=== PATIENT | male | born 1955 | race Caucasian/White ===

== ENCOUNTER 2020-03-04 23:17 | Observation (INO) ==
[2020-03-04] MEDS ORDERED: MULTI-VITAMIN INFUSION 10 ML, THIAMINE HCL 100 MG, FOLIC ACID 1 MG in SODIUM CHLORIDE 0... IV ONE (23:35)
--- NOTE | 2020-03-04 23:41 | Emergency Department Note ---
Impression & Plan Syncope, Contusion of face, Laceration of lip, Fracture of tooth, Closed head injury, Amnesia ED Provider Note Name: LINDA ROMAN Age: 64 Sex: M Arrives Via: Walk-In Informant: Patient, (Rhiannon, via ) ED Provider: Jayesh Holland MD Chief Complaint: Syncope Impression: Syncope Contusion of face Laceration of lip Fracture of tooth closed head injury amnesia Medical Decision Makin yr old male arrives mildly hypotensive and a bit confused about events after syncope at home followed by prolonged AMS and confusion. Exam with some amnesia to event and some issues recalling even discussion with me, however no neuro deficits on exam, and denies pain nor symptoms. Does have contusion to face with small lacerations not requiring closure. There is a macerated upper lip laceration which is not amenable to closure. He fractured his left frontal upper tooth and piece does not seem to be imbedded in lip itself. Admits daily ETOH and given mild hypotensive he has give banana bag 1 L with improvement BP. He thinks he may have had BM prior to passing out but can't remember. He has soft abdomen, clear lungs, and no other acute findings. CT face/head are both reported as negative per stat rad. CXR OK. Labs looking OK with normal trop at this time. He has no respiratory complaints nor risks for PE/DVT thus will hold on any dimer/imaging. Hospitalist consulted for further evaluation. I will note his amnesia is improving though still no memory of event itself. Etoh is 55 and thus initial confusion on arrival likely head injury rather than alcohol/drug related. Triage/Nursing Notes reviewed by Me Additional history obtained from Differentials:Vasovagal event, dehydration, infection, hypoglycemia, electrolyte abnormalities, cardiac sources, intracerebral event, pulmonary embolism, seizure, toxicologic, neurologic, as well as other pathologies. Vital Signs: reviewed and remarkable for mild hypotension on arrival Interventions: Saline lock, Banana Bag 1 L IV Labs:Reviewed and remarkable for no significant abnormalities Imaging:[facility] Radiologist interpretation reviewed by me: CT Head Face: No acute findings X ray results are stated below per my interpretation: Chest: 1 view: No infiltrate, no effusion, normal cardiac border. EKG:Per My Interpretation: Indication Syncope: NSR 84 bpm, qtc 427, RBBB. No Ectopy. No Ischemia. No previous for comparison Cardiac/Tele Monitoring: Cardiac Monitoring: An Order was placed for continuous cardiac monitoring. The monitor shows a rate of 80 with a normal sinus rhythm. Consults:Dr Sammi Eaton Hospitalist Plan: Disposition:Hospitalization. Condition: Good Prescriptions:none PDMP: n/a History of Present Illness:64 yr old male who reports no medical problems arrives for evaluation following syncopal event. Patient notes he was having normal evening, likely drank several beers and then he remembers his waking him from floor. He apparently got up and was walking in to the bedroom and heard loud crash. Found patient laying face down and unresponsive on the ground. Several facial lacerations/contusions. Patient gradually came to and brought him to ED for further evaluation. Patient notes his face is sore but denies headache, neck pain nor other pains. States he was feeling fine all day. He admits nightly drinking and only ever goes more than a day without alcohol during Lent. Believes he goes through at least one to two cases of beer a day. Furthermore he admits he was smoking marijuana this evening. Denies recent fevers, chills, nausea, vomiting, cp, sob, back pain, abdominal pain, leg swelling, calf pain, rashes nor other symptoms. He denies recent travel nor PE/DVT risks. Patient believes tetanus vaccination up to date within last few years. ROS: See above HPI for pertinent positives & negatives. A total of 10 systems reviewed and were otherwise negative. Past Medical History:None Past Surgical History:None Family History:Mother and father of cancer Social History:Retired from [employer], Daily ETOH, occasional marijuana, no other drugs, no tobacco Home Medications:None Allergies:None Vitals:Blood Pressure: 98/61, Pulse 84, RR 20, T 36.7C, O2 95% on RA Physical Exam: GENERAL: Patient is mildly confused appearing and in no acute distress. HEAD: AT/NC FACE: abrasions over bridge of nose and medial left eyebrow. EYES: No scleral icterus, unremarkable pupils. ENT: Fractured upper left anterior tooth, multiple abrasions upper/lower lip and swelling. Mucous membranes moist, no nasal congestion. NECK: No masses appreciated, nomeningismus, trachea is midline. RESPIRATORY: No dyspnea. Clear to auscultation and equal bilaterally. No wheeze, no rhonchi. CARDIOVASCULAR: Regular rate and rhythm.No murmurs, rubs, gallops appreciated. GASTROINTESTINAL: Abdomen soft, non-tender, no peritonitis.Bowel sounds positive.No masses appreciated. BACK: No midline tenderness, no CVA tenderness EXTREMITIES: Normal motion all extremities, no cyanosis, no edema. NEUROLOGIC: Alert and oriented though slow to respond and smells of alcohol, no acute motor or sensory deficits, no focal weakness, cranial nerves grossly intact. SKIN: No rash, no jaundice, no diaphoresis. 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 Beliefs That Will Affect Care: None Current Living Situation: Spouse Other Information That Helps Us Care for You: No Feels Safe at Home: Yes Safety Concerns: Feels Safe At This Time Assistive Devices: Glasses Allergies Allergies Allergy/AdvReac Type Severity Reaction Status Date / Time No Known Allergies Allergy Verified 03/04/20 23:54 Home Meds Home Medications Medication Instructions Recorded Confirmed No Known Home Medications 03/04/20 03/04/20 Results & Data (ED) Vital Signs Vital Signs - 24 hr 03/04/20 23:20 03/05/20 00:22 03/05/20 00:30 Temperature 36.7 C Temperature Source Oral Pulse Rate 84 84 89 Pulse Rate from SpO2 Sensor 85 89 Respiratory Rate 20 20 19 Respiratory Effort / Characteristics Non-Labored Spontaneous Respiratory Depth Normal Blood Pressure 98/61 L 142/77 H 145/79 H Blood Pressure Mean 73 92 86 Pulse Oximetry 95 98 97 Oxygen Delivery Method Room Air Room Air Room Air Sepsis Recent Fever Within 48 Hours No Sepsis New/Unexplained Change in Mental Status No Sepsis Action Taken by Nursing No Action Required 03/05/20 01:00 03/05/20 01:30 03/05/20 02:00 Temperature Temperature Source Pulse Rate 87 82 91 H Pulse Rate from SpO2 Sensor Respiratory Rate 15 17 24 Respiratory Effort / Characteristics Respiratory Depth Blood Pressure 138/80 132/76 140/76 Blood Pressure Mean 100 94 89 Pulse Oximetry 98 97 Oxygen Delivery Method Room Air Room Air Sepsis Recent Fever Within 48 Hours Sepsis New/Unexplained Change in Mental Status Sepsis Action Taken by Nursing Laboratory Data Result diagrams: 03/04/20 23:49 03/04/20 23:49 Lab Results 03/04/20 03/04/20 03/04/20 Range/Units 23:49 23:49 23:49 WBC 10.01 (4.8-10.8) K/uL RBC 4.90 (4.7-6.1) M/uL Hgb 14.9 (14.0-18.0) g/dL Hct 42.9 (42-52) % MCV 87.6 (80-100) fL MCH 30.4 (25-34) pg MCHC 34.7 (32-36) g/dL RDW Std Deviation 41.4 (36.4-46.3) fL RDW Coeff of Laura 12.8 (11.5-14.5) % Plt Count 141 (130-400) K/uL MPV 8.3 (7.4-10.4) fL Immature Gran % (Auto) 0.6 % Neut % (Auto) 81.3 % Lymph % (Auto) 12.8 % [place] % (Auto) 4.3 % Eos % (Auto) 0.8 % Baso % (Auto) 0.2 % Neut # (Auto) 8.14 H (1.4-6.5) K/uL Lymph # (Auto) 1.28 (1.2-3.4) K/uL [place] # (Auto) 0.43 (0.11-0.59) K/uL Eos # (Auto) 0.08 (0-0.5) K/uL Baso # (Auto) 0.02 (0-0.2) K/uL Immature Gran # (Auto) 0.06 H (0.00-0.02) K/uL Sodium 144 (136-145) mmol/L Potassium 3.7 (3.5-5.1) mmol/L Chloride 112 H (98-107) mmol/L Carbon Dioxide 26 (21-32) mmol/L Anion Gap 6.0 (3-11) BUN 14 (7-18) mg/dl Creatinine 1.00 (0.6-1.4) mg/dl Est Cr Clr Drug Dosing 67.3 ml/min Est GFR ( Amer) 91.8 Est GFR (Non-Af Amer) 79.2 BUN/Creatinine Ratio 13.9 (10-20) Glucose 117 H (70-99) mg/dl Calcium 8.6 (8.5-10.1) mg/dl Magnesium 2.2 (1.8-2.4) mg/dl Total Bilirubin 0.4 (0.2-1) mg/dl Direct Bilirubin 0.1 (0-0.2) mg/dl AST 20 (15-37) U/L ALT 29 (12-78) U/L Alkaline Phosphatase 54 (45-117) U/L Troponin I < 0.015 (0-0.045) ng/ml Total Protein 7.2 (6.4-8.2) gm/dl Albumin 3.6 (3.4-5.0) gm/dl TSH 1.210 (0.300-4.500) uIu/ml Ethyl Alcohol mg/dL 55.0 H (0-3) mg/dl Administered Medications Lactated Ringer's (Lr) 1,000 mls @ 75 mls/hr IV .[id number] ONE Stop: 03/05/20 18:03 Last Admin: 03/05/20 04:52 Dose: 75 mls/hr Documented by: [id number] Discontinued Medications Multivitamins 10 ml/ Thiamine HCl 100 mg/ Folic Acid 1 mg/Sodium Chloride 1,011.2 mls @ 1,011.2 mls/hr IV .Q1H ONE Stop: 03/05/20 00:34 Last Infusion: 03/05/20 01:27 Dose: 0 mls/hr Documented by: [id number] Admin: 03/05/20 00:21 Dose: 1,011.2 mls/hr Documented by: [id number] Discharge Plan Visit Data Chief Complaint: Fall Stated Complaint: CONFUSION FROM FALL ED Provider: Jayesh Holland Discharge Problem: Syncope, Contusion of face, Laceration of lip, Fracture of tooth, Closed head injury, Amnesia Patient Disposition: Admitted As Inpatient Discharge Instructions Interventions: ED Discharge Assessment Last Done: 03/05/20 04:01 Discharge Problem: Syncope Qualifiers: Syncope type: unspecified Qualified Code(s): R55 - Syncope and collapse Contusion of face Qualifiers: Encounter type: initial encounter Qualified Code(s): S00.83XA - Contusion of other part of head, initial encounter Laceration of lip Qualifiers: Encounter type: initial encounter Qualified Code(s): S01.511A - Laceration without foreign body of lip, initial encounter Fracture of tooth Qualifiers: Encounter type: initial encounter Fracture type: closed Qualified Code(s): S02.5XXA - Fracture of tooth (traumatic), initial encounter for closed fracture Closed head injury Qualifiers: Encounter type: initial encounter Qualified Code(s): S09.90XA - Unspecified injury of head, initial encounter
[2020-03-05 00:12] LABS: Basophils # (auto) 0.02 K/uL (0-0.2); Basophils % (auto) 0.2 %; Eosinophils # (auto) 0.08 K/uL (0-0.5); Eosinophils % (auto) 0.8 %; Hematocrit (blood only) 42.9 % (42-52); Hemoglobin 14.9 g/dL (14.0-18.0); Immature Granulocytes # (auto) 0.06 K/uL (0.00-0.02); Immature Granulocytes % (auto) 0.6 %; Lymphocytes # (auto) 1.28 K/uL (1.2-3.4); Lymphocytes % (auto) 12.8 %; Mean Corpuscular Hemoglobin 30.4 pg (25-34); Mean Corpuscular Hgb Conc 34.7 g/dL (32-36); Mean Corpuscular Volume 87.6 fL (80-100); Mean Platelet Volume 8.3 fL (7.4-10.4); Monocytes # (auto) 0.43 K/uL (0.11-0.59); Monocytes % (auto) 4.3 %; Neutrophils # (auto) 8.14 K/uL (1.4-6.5); Neutrophils % (auto) 81.3 %; Platelet Count 141 K/uL (130-400); RDW Coefficient of Variation 12.8 % (11.5-14.5); RDW Standard Deviation 41.4 fL (36.4-46.3); White Blood Count 10.01 K/uL (4.8-10.8)
[2020-03-05 00:30] LABS: Alanine Aminotransferase 29 U/L (12-78); Albumin Level 3.6 gm/dl (3.4-5.0); Aspartate Aminotransferase 20 U/L (15-37); BUN Creatinine Ratio 13.9 (10-20); Bilirubin Direct 0.1 mg/dl (0-0.2); Blood Urea Nitrogen 14 mg/dl (7-18); Calcium 8.6 mg/dl (8.5-10.1); Carbon Dioxide 26 mmol/L (21-32); Chloride 112 mmol/L (98-107); Creatinine Clr Calc Pharmacy 67.3 ml/min; Est GFR (African American) 91.8; Est GFR (Non-African American) 79.2; Glucose 117 mg/dl (70-99); Magnesium 2.2 mg/dl (1.8-2.4); Potassium 3.7 mmol/L (3.5-5.1); Sodium 144 mmol/L (136-145)
[2020-03-05 00:35] LABS: Alkaline Phosphatase 54 U/L (45-117); Bilirubin,Total 0.4 mg/dl (0.2-1); Total Protein 7.2 gm/dl (6.4-8.2); Troponin I < 0.015 ng/ml (0-0.045)
--- NOTE | 2020-03-05 02:13 | History & Physical Report ---
Date of Service March 05, 2020 Assessment & Plan (1) Syncope: Unwitnessed event likely secondary to orthostasis given low blood pressure documented at the ER. Rule out cardiac dysfunction Cerebral concussion Alcohol abuse OBS Medical telemetry IVF TTE RE syncope GCS neurochecks Neurology consult RE cerebral concussion DT precautions/TRISTAN S DVT prophylaxis. SCDs RE bleeding facial wounds Full code Patient requests for his to be updated of plan of care in AM. Ms. Dionne Robins, contact #[phone]. Text document was generated using [employer] voice recognition software. It may contain grammatical or spelling errors. Kindly contact undersigned for clarification of any documentation item in question. History of Present Illness Chief Complaint: Syncope, head trauma Primary Care Provider: Darrius Henson MD History obtained from patient and records. Medical history significant for alcohol abuse. Patient got up from the commode after having a bowel movement yesterday to go into the bedroom. Subsequently felt lightheaded and had an unwitnessed syncopal event. Patient found by lying facedown after crash occurred. Unresponsive for a few minutes. No witnessed seizures. Patient denies chest pain, S OB no prior syncopal events in the past. Patient somewhat disoriented and had trouble remembering things after event. Patient brought to the ER for evaluation. Initial blood pressure at the ER 90s. Medical History as above No prior history of alcohol withdrawal seizures or confinement for alcohol withdrawal as per patient. Actinic keratosis on the face for which topical fluorouracil prescribed by planning engineer to start March,. Surgical History : Dental surgery Family History : Pancreatic cancer, colon cancer Personal/Social history : Non-smoker, alcohol abuse, retired 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 Beliefs That Will Affect Care: None Current Living Situation: Spouse Other Information That Helps Us Care for You: No Feels Safe at Home: Yes Safety Concerns: Feels Safe At This Time Assistive Devices: Glasses Review of Systems Review of Systems: As per HPI, all 10 systems reviewed, all other ROS negative Physical Exam Physical Exam: GENERAL: Comfortable, pleasant, no respiratory distress SKIN: Normal color, warm HEENT: Facial contusions, pink palpebral conjunctivae, no ptosis, swollen nasal dorsum, dry buccal mucosa NECK : Supple, no tenderness CHEST : CTA, no tenderness HEART : RRR, no obvious murmurs ABDOMEN: Some distention, nontender EXTREMITIES : No LE swelling/tenderness, no other conspicuous deformities noted NEUROLOGIC : Coherent, no facial asymmetry, no other gross focality Results & Data Results & Data ([facility]) Vital Signs (Past 12 Hours) Vital Signs Temp Pulse Resp BP Pulse Ox 03/05/20 01:30 82 17 132/76 98 03/05/20 01:00 87 15 138/80 03/05/20 00:30 89 19 145/79 H 97 03/05/20 00:22 84 20 142/77 H 98 03/04/20 23:20 36.7 C 84 20 98/61 L 95 Laboratory Results Laboratory Results WBC 10.01 K/uL (4.8-10.8) 03/04/20 23:49 RBC 4.90 M/uL (4.7-6.1) 03/04/20 23:49 Hgb 14.9 g/dL (14.0-18.0) 03/04/20 23:49 Hct 42.9 % (42-52) 03/04/20 23:49 MCV 87.6 fL (80-100) 03/04/20 23:49 MCH 30.4 pg (25-34) 03/04/20 23:49 MCHC 34.7 g/dL (32-36) 03/04/20 23:49 RDW Std Deviation 41.4 fL (36.4-46.3) 03/04/20 23:49 RDW Coeff of Laura 12.8 % (11.5-14.5) 03/04/20 23:49 Plt Count 141 K/uL (130-400) 03/04/20 23:49 MPV 8.3 fL (7.4-10.4) 03/04/20 23:49 Immature Gran % (Auto) 0.6 % 03/04/20 23:49 Neut % (Auto) 81.3 % 03/04/20 23:49 Lymph % (Auto) 12.8 % 03/04/20 23:49 [place] % (Auto) 4.3 % 03/04/20 23:49 Eos % (Auto) 0.8 % 03/04/20 23:49 Baso % (Auto) 0.2 % 03/04/20 23:49 Neut # (Auto) 8.14 K/uL (1.4-6.5) H 03/04/20 23:49 Lymph # (Auto) 1.28 K/uL (1.2-3.4) 03/04/20 23:49 [place] # (Auto) 0.43 K/uL (0.11-0.59) 03/04/20 23:49 Eos # (Auto) 0.08 K/uL (0-0.5) 03/04/20 23:49 Baso # (Auto) 0.02 K/uL (0-0.2) 03/04/20 23:49 Immature Gran # (Auto) 0.06 K/uL (0.00-0.02) H 03/04/20 23:49 Sodium 144 mmol/L (136-145) 03/04/20 23:49 Potassium 3.7 mmol/L (3.5-5.1) 03/04/20 23:49 Chloride 112 mmol/L (98-107) H 03/04/20 23:49 Carbon Dioxide 26 mmol/L (21-32) 03/04/20 23:49 Anion Gap 6.0 (3-11) 03/04/20 23:49 BUN 14 mg/dl (7-18) 03/04/20 23:49 Creatinine 1.00 mg/dl (0.6-1.4) 03/04/20 23:49 Est Cr Clr Drug Dosing 67.3 ml/min 03/04/20 23:49 Est GFR ( Amer) 91.8 03/04/20 23:49 Est GFR (Non-Af Amer) 79.2 03/04/20 23:49 BUN/Creatinine Ratio 13.9 (10-20) 03/04/20 23:49 Glucose 117 mg/dl (70-99) H 03/04/20 23:49 Calcium 8.6 mg/dl (8.5-10.1) 03/04/20 23:49 Magnesium 2.2 mg/dl (1.8-2.4) 03/04/20 23:49 Total Bilirubin 0.4 mg/dl (0.2-1) 03/04/20 23:49 Direct Bilirubin 0.1 mg/dl (0-0.2) 03/04/20 23:49 AST 20 U/L (15-37) 03/04/20 23:49 ALT 29 U/L (12-78) 03/04/20 23:49 Alkaline Phosphatase 54 U/L (45-117) 03/04/20 23:49 Troponin I < 0.015 ng/ml (0-0.045) 03/04/20 23:49 Total Protein 7.2 gm/dl (6.4-8.2) 03/04/20 23:49 Albumin 3.6 gm/dl (3.4-5.0) 03/04/20 23:49 TSH 1.210 uIu/ml (0.300-4.500) 03/04/20 23:49 Ethyl Alcohol mg/dL 55.0 mg/dl (0-3) H 03/04/20 23:[address] head initial read: No acute intracranial findings. No evidence of acute cranial fracture. Chest x-ray as per my interpretation : Elevated right hemidiaphragm EKG as per my interpretation : Rate 85, NSR, normal axis, incomplete right bundle branch block, no ischemia
[2020-03-05 03:05] LABS: Appearance Urine Clear (Clear); Bilirubin Urine Negative (Negative); Blood Urine Negative (Negative); Color Urine Yellow; Glucose Urine UA Negative (Negative); Ketones Urine Negative (Negative); Leukocyte Esterase Urine Negative (Negative); Nitrite Urine Negative (Negative); Protein Urine Negative (Negative); Specific Gravity Urine 1.015 (1.000-1.030); Urobilinogen Urine Negative (Negative)
[2020-03-05 03:26] LABS: Amphetamines+Metham, Urine Neg (Neg); Barbiturates, Urine Neg (Neg); Benzodiazepine, Urine Neg (Neg); Cocaine, Urine Neg (Neg); MDMA (Ecstacy), Urine Neg (Neg); Methadone, Urine Neg (Neg); Opiate, Urine Neg (Neg); Phencyclidine, Urine Neg (Neg)
[2020-03-05] MEDS ORDERED: INFLUENZA VIRUS QUAD VACCINE 0.5 ML SYR IM ONE (04:41)
[2020-03-05] MEDS ORDERED: INFLUENZA ADMINISTRATION CHARGE ONE (04:41)
[2020-03-05] MEDS ORDERED: PROMETHAZINE HCL 12.5 MG in SODIUM CHLORIDE 0.9% 50 ML IV PRN (04:44)
[2020-03-05] MEDS ORDERED: ACETAMINOPHEN 325 MG TAB PO PRN (04:44)
[2020-03-05] MEDS ORDERED: LORazepam 1 MG/2 ML VIAL IV PRN (04:44)
[2020-03-05] MEDS ORDERED: LORazepam 3 MG/6 ML VIAL IV PRN (04:44)
[2020-03-05] MEDS ORDERED: IBUPROFEN 200 MG TAB PO PRN (04:44)
[2020-03-05] MEDS ORDERED: LORazepam 2 MG/4 ML VIAL IV PRN (04:44)
[2020-03-05] MEDS ORDERED: ATIVAN IV ALCOHOL WITHDRAWL IV PRN (04:44)
[2020-03-05] MEDS ORDERED: KETOROLAC TROMETHAMINE 15 MG/ML VIAL IV PRN (04:44)
[2020-03-05] MEDS ORDERED: LACTATED RINGER'S 1,000 ML IV ONE (04:44)
[2020-03-05 06:26] LABS: Basophils # (auto) 0.02 K/uL (0-0.2); Basophils % (auto) 0.2 %; Eosinophils # (auto) 0.03 K/uL (0-0.5); Eosinophils % (auto) 0.2 %; Hemoglobin 14.9 g/dL (14.0-18.0); Immature Granulocytes # (auto) 0.05 K/uL (0.00-0.02); Immature Granulocytes % (auto) 0.4 %; Lymphocytes # (auto) 1.47 K/uL (1.2-3.4); Lymphocytes % (auto) 11.3 %; Mean Corpuscular Hemoglobin 30.8 pg (25-34); Mean Corpuscular Hgb Conc 34.7 g/dL (32-36); Mean Platelet Volume 8.6 fL (7.4-10.4); Monocytes # (auto) 0.84 K/uL (0.11-0.59); Monocytes % (auto) 6.4 %; Neutrophils # (auto) 10.62 K/uL (1.4-6.5); Neutrophils % (auto) 81.5 %; Platelet Count 148 K/uL (130-400); RDW Standard Deviation 42.5 fL (36.4-46.3); Red Blood Count 4.83 M/uL (4.7-6.1); White Blood Count 13.03 K/uL (4.8-10.8)
[2020-03-05] MEDS: FOLIC ACID 1 MG TAB PO SCH (07:46)
[2020-03-05] MEDS: MULTIVITAMIN TAB PO SCH (07:46)
[2020-03-05] MEDS: THIAMINE HCL 100 MG TAB PO SCH (07:47)
--- NOTE | 2020-03-05 08:23 | XRay Report ---
XR chest 1V portable CLINICAL HISTORY: syncope COMPARISON STUDY: No previous studies for comparison. FINDINGS: Lung volumes are normal. Lungs are clear. There is no pneumothorax or pleural effusion. Car diac size is normal. Mediastinal contours are normal. There is no evidence for pulmonary edema. IMPRESSION: No acute cardiopulmonary findings. ACT 112: Negative or not required by law. Electronically signed by: Pritesh Gregorio M.D. 03/05/2020 8:22 AM
--- NOTE | 2020-03-05 08:26 | CT Scan Report ---
CT head/brain wo con CLINICAL HISTORY: 64 years-old Male with syncope, head injury. Acute head injury status post fall wi th loss of consciousness TECHNIQUE: Multiple axial CT images of the head were obtained without contrast. A dose lowering tech nique was utilized adhering to the principles of ALARA. COMPARISON: CT maxillofacial same day. FINDINGS: No acute intracranial hemorrhage, midline shift, intracranial mass, hydrocephalus, territorial ischem ia or abnormal extra-axial collection. The calvarium is intact. Sigmoidal bowing of the nasal septum. Mild angulation of the left nasal bone . Soft tissue swelling surrounds the nasal bone. The paranasal sinuses, mastoid air cells, and middle ear cavities are clear. IMPRESSION: No acute intracranial abnormality. ACT 112: Negative or not required by law. The above report was generated using voice recognition software. It may contain grammatical, syntax o r spelling errors. Electronically signed by: Marcus Milton M.D. 03/05/2020 8:25 AM
--- NOTE | 2020-03-05 08:28 | CT Scan Report ---
MAXILLOFACIAL CT WITHOUT CONTRAST CLINICAL HISTORY: syncope face injury COMPARISON STUDY: None. TECHNIQUE: A maxillofacial CT was performed without IV contrast. Coronal and sagittal reformats were viewed. Automated exposure control was utilized for the study. A dose lowering technique was utiliz ed adhering to the principles of ALARA. FINDINGS: Globes are intact with no retrobulbar hematoma. Nasal soft tissue swelling is noted. There is an acute minimally depressed left nasal bone fracture. No additional acute facial bone fractures a re noted. Alignment of the temporomandibular joints is anatomic. There is no skull base fracture. No fracture is identified within visualized portions of the upper cervical spine. Left maxillary sinus m ucous retention cyst is noted. IMPRESSION: Acute minimally depressed left basal bone fracture. This finding will be called/faxed to the ordering provider at time of dictation. ACT 112: Negative or not required by law. Electronically signed by: Pritesh Gregorio M.D. 03/05/2020 8:27 AM
--- NOTE | 2020-03-05 11:48 | Electrocardiogram Report ---
Test Reason : Blood Pressure : / mmHG Vent. Rate : 084 BPM Atrial Rate : 084 BPM P-R Int : 186 ms QRS Dur : 104 ms QT Int : 362 ms P-R-T Axes : 068 012 045 degrees QTc Int : 427 ms Normal sinus rhythm Incomplete right bundle branch block Cannot rule out Brugada pattern Borderline ECG No previous ECGs available Confirmed by Jamarcus Garcia ([id number]) on 03/05/2020 11:47:45 AM Referred By: REFERRED SELF Confirmed By:Jamarcus Garcia
--- NOTE | 2020-03-05 16:03 | Communication Note ---
Date of Service: March 05, 2020 Parul Redd is 64 years old is right-handed is a retired pe manager for [employer] and is a patient of Dr. Darrius Henson and is in excellent health with no known active medical problems. On Saturdays he generally ingested reasonable amount of alcohol in the form of beer and did so most of the day yesterday He claims this is not his general habit and tells me he drinks several beers a day but not daily 11:00 at night he was sitting on the toilet after defecating and urinating, stood up, felt lightheaded, realized that he needed to get to horizontal position but unfortunately was unable to do so before passing out falling forward striking his forehead and receiving facial trauma and fracturing some teeth He was confused for a bit afterwards and upon arrival in our emergency room still had some confusion as to where he was could not name the president but is now back to his baseline does not have any headaches denies any memory loss, kn ows the date, the president, can give me a precise medical history, but is amnestic for probably 20 to 30 minutes time after the event No fecal or urinary incontinence was described there was no lingual or buccal lacerations other than those suffered during fall he does not describe any pain or myalgias and no convulsive movements were apparently noted He has had a CT of the head which is negative CT of the facial bones is pending as is a maxillofacial consultation Neurology has been called to see if he had a concussion and assess him. I suspect he may have been a question about a seizure His past medical history reveals no active problems he takes no medications he denies any drug allergies and he does admit to using ethanol in a binge fashion generally on Saturdays He is has a grown daughter lives in [place] is been retired from [employer] for 3 years Review of systems reveals no recent fever sweats chills weight loss weight gain new issues referable to HEENT other than the trauma that just occurred, no cardiovascular pulmonary gastrointestinal genitourinary musculoskeletal dermatologic or hematologic issues and from a neurologic point of view is never had an event of this type and has no history for seizures On exam blood pressure 118/65 pulse is 71 respirations are 18 he is awake alert oriented in 3 spheres he was afebrile O2 saturations are 95. He has a clear trauma to the forehead and swelling of the left more than right eyes but otherwise eye movements are fine facial motility and strength is normal facial sensation is intact he has some chipping of the front teeth I do not hear any carotid bruits pulse rate is regular he has no tremor or tics choreiform activity drift or pronation sign reflexes are 1+ symmetrical toes are downgoing no Chemo signs are seen strength testing is normal and sensations intact to vibration light touch and temperature I doubt this man had a seizure but since he apparently is going to be held overnight for consultation and observation for delirium tremens in light of the ethanol history I am going to obtain an EEG just to be certain that there was no seizure activity though frankly the story is really sounds like a vagal mediated hypotensive episode following defecation and urination I will read the EEG when it is completed and get back to the chart tomorrow. If the study is negative and there is no other reason to keep him in the hospital I see no reason he cannot be discharged home with follow-up with his primary care and neurology on an as-needed basis Tonio Avila MD
--- NOTE | 2020-03-05 16:28 | Surgery Consultation ---
Date of Consultation March 05, 2020 History of Present Illness Attending Physician: Gera Carlton MD I was requested to evaluate the facial bone CT scan and render an opinion regarding the nasal fracture. Patient`s CT was referred for evaluation of nasal trauma. The injury happened on ---Today secondary to a fall syncopal event--admitted CT scan-review Very slight nasal bone fractures, minimal ( less then 1 mm) displaced left lateral while right is stable septum is midline. Plan: This fracture represents insignificant functional or cosmetic changes and requires no surgical treatment. There is no need for me to see Mr. Redd while he is in hospital. If he wishes I would be more then happy to see him after discharge as an out patient for further evaluation Dr Kee [address] [phone] Allergies Allergy/AdvReac Type Severity Reaction Status Date / Time No Known Allergies Allergy Verified 03/04/20 23:54 Home Medications Home Medications Medication Instructions Recorded Confirmed Type No Known Home Medications 03/04/20 03/04/20 History Patient History Social History Smoking Status: Former smoker Hx Alcohol Use: Yes Alcohol type: beer Hx Substance Use: Yes Last Used Substance: Hours (ago) Preferred Language: Palestinian Communication Ability: Effective Head Mechanic Required: No Beliefs That Will Affect Care: None Current Living Situation: Spouse Other Information That Helps Us Care for You: No Feels Safe at Home: Yes Safety Concerns: Feels Safe At This Time Assistive Devices: None Results & Data ([facility]) Vital Signs (Past 12 Hours) Vital Signs Temp Pulse Resp BP BP Pulse Ox 03/05/20 14:51 36.9 C 71 18 118/65 95 03/05/20 11:21 37.6 C H 72 18 124/67 95 03/05/20 07:47 36.8 C 81 18 120/63 96 03/05/20 04:34 37 C 83 18 133/74 95 PG Care Time/CCT Total # of Minutes Spent Total Time Spent with Patient: Total time spent is greater than 50% in coordination of care (as documented) at patient's floor/unit and/or counseling patient: Coding Level of Care Code None
--- NOTE | 2020-03-05 17:56 | Hospitalist Progress Note ---
Date of Service March 05, 2020 Assessment & Plan (1) Syncope: Possible related to orthostasis when standing from sitting position Low BP on admission CT head showed no acute intracranial abnormality CT face showed acute minimally depressed left basal bone fracture. Neuro on board Doubt of any seizure neuro plan to get an EEG Continue PT/OT eval Fall precaution Continue neuro check Nasal fracture CT facial showed showed acute minimally depressed left basal bone fracture. Case discussed with maxillofacial surgeon that recommended no surgical intervention Continue monitor DVT prophylaxis on SCDs due to bleeding facial wounds Code status Full code Patient requests for his to be updated of plan of care in AM. Ms. Dionne Robins, contact #[phone]. Admission and Anticipated Discharge Date Admission Date: March 05, 2020 Subjective Pt was seen and examined. Lying in bed with no distress. Pt said that he feels ok He said that he has minimal tenderness when pressure apply to the nose He said that he feels fine Spoke to his today and provided update denies any chest pain, palpitation, dizziness and SOB Physical Exam Physical Exam: General- No acute distress Head- atraumatic Eyes- PERRL, EOMI, ENT- oropharynx clear Neck- supple, no JVD Lungs- clear to auscultation Heart- regular rhythm; no murmur Abdomen- normal bowel sounds, soft, nontender Extremities- no calf tenderness Neuro- alert, oriented x 3; PERRL, EOMI; no facial palsy; no dysarthria Skin- warm & dry Results & Data Results & Data ([facility]) Vital Signs (Past 12 Hours) Vital Signs Temp Pulse Pulse Resp BP Pulse Ox 03/05/20 14:51 36.9 C 71 18 118/65 95 03/05/20 14:20 81 03/05/20 11:21 37.6 C H 72 18 124/67 95 03/05/20 07:47 36.8 C 81 18 120/63 96 (1) Syncope Syncope type: unspecified Qualified Code(s): R55 - Syncope and collapse
[2020-03-06 06:01] LABS: Estimated Average Glucose 103 mg/dl; Hemoglobin A1C 5.2 % (4.5-5.6)
[2020-03-06] MEDS: THIAMINE HCL 100 MG TAB PO SCH (08:33)
[2020-03-06] MEDS: FOLIC ACID 1 MG TAB PO SCH (08:33)
[2020-03-06] MEDS: MULTIVITAMIN TAB PO SCH (08:33)
--- NOTE | 2020-03-06 12:11 | Electroencephalogram ---
EEG Procedure Note Date of Service March 06, 2020 Start / End Times Start Time: 927 End Time: 947 Referring Physician Tonio Avila MD History Syncope versus seizure Home Medication List Home Medications Medication Instructions Recorded Confirmed Type No Known Home Medications 03/04/20 03/04/20 History Inpatient Medication List Folic Acid (Folic Acid 1 Mg Tab) 1 mg PO QAM [facility] Stop: 04/04/20 08:59 Last Admin: 03/06/20 08:33 Dose: 1 mg Documented by: [id number] Admin: 03/05/20 07:46 Dose: 1 mg Documented by: [id number] Multivitamins (Multivitamin Tab) 1 tab PO QAM [facility] Stop: 04/04/20 08:59 Last Admin: 03/06/20 08:33 Dose: 1 tab Documented by: [id number] Admin: 03/05/20 07:46 Dose: 1 tab Documented by: [id number] Thiamine HCl (Thiamine Hcl 100 Mg Tab) 100 mg PO QAM [facility] Stop: 04/04/20 08:59 Last Admin: 03/06/20 08:33 Dose: 100 mg Documented by: [id number] Admin: 03/05/20 07:47 Dose: 100 mg Documented by: [id number] Discontinued Medications Multivitamins 10 ml/ Thiamine HCl 100 mg/ Folic Acid 1 mg/Sodium Chloride 1,011.2 mls @ 1,011.2 mls/hr IV .Q1H ONE Stop: 03/05/20 00:34 Last Infusion: 03/05/20 01:27 Dose: 0 mls/hr Documented by: [id number] Admin: 03/05/20 00:21 Dose: 1,011.2 mls/hr Documented by: [id number] Lactated Ringer's (Lr) 1,000 mls @ 75 mls/hr IV .[id number] ONE Stop: 03/05/20 18:03 Last Infusion: 03/05/20 17:41 Dose: 0 mls/hr Documented by: [id number] Admin: 03/05/20 04:52 Dose: 75 mls/hr Documented by: [id number] Description This is a 21 electrode EEG with a single channel dedicated to limited EKG. The electrodes were placed in accordance with the International 10-20 system. This EEG done as a bedside recording is of excellent technical quality and reveals few or no muscle movement artifacts. Was performed during wakefulness. Photic stimulation was performed. Drowsiness is not obtained. These conditions there is a normal background rhythm alpha range of up to 10 Hz maximum frequency and 30 V maximal amplitude mid frequency modest voltage theta activity of symmetrical type is seen centrally beta activity seen bifrontally photic stimulation provokes modest driving response with no other significant abnormalities no time during the waking tracing is evidence for potential epileptogenic activity Interpretation Is a normal EEG during wakefulness without evidence for focal generalized encephalopathy without evidence for potential epileptogenic discharges Clinical Correlation Is a normal EEG revealing no evidence for encephalopathy, postconcussive change or potential epileptogenic activity Tonio Avila MD
--- NOTE | 2020-03-06 14:50 | Hospitalist Progress Note ---
Date of Service March 06, 2020 Assessment & Plan (1) Syncope: Possible related to orthostasis when standing from sitting position or vasovagal from urination Low BP on admission CT head showed no acute intracranial abnormality CT face showed acute minimally depressed left basal bone fracture. Neuro on board EEG showed no evidence of seizure activity ECHO showed no LV wall motion abnormality with EF 55-60% No focal neuro deficit on exam Fall precaution case discussed with neuro OK from Neuro standpoint to discharge home Nasal fracture CT facial showed showed acute minimally depressed left basal bone fracture. Case discussed with maxillofacial surgeon that recommended no surgical intervention Ok from maxillofacial standpoint to discharge home Ok to follow with maxillofacial surgery outpatient DVT prophylaxis on SCDs due to bleeding facial wounds Code status Full code Patient requests for his to be updated of plan of care in AM. Ms. Dionne Robins, contact #[phone]. Admission and Anticipated Discharge Date Admission Date: March 05, 2020 Subjective Pt was seen and examined Lying in bed with no distress Pt said that he feels fine He said that he walked around with the nurse with no distress Denies any chest pain, palpitation, dizziness and SOB Physical Exam Physical Exam: General- No acute distress Head- atraumatic Eyes- PERRL, EOMI, ENT- oropharynx clear Neck- supple, no JVD Lungs- clear to auscultation Heart- regular rhythm; no murmur Abdomen- normal bowel sounds, soft, nontender Extremities- no calf tenderness Neuro- alert, oriented x 3; PERRL, EOMI; no facial palsy; no dysarthria Skin- warm & dry Results & Data Results & Data ([facility]) Vital Signs (Past 12 Hours) Vital Signs Temp Pulse Pulse Resp BP BP Pulse Ox 03/06/20 11:24 36.9 C 61 18 147/81 H 96 03/06/20 08:07 36.9 C 73 16 116/64 97 03/06/20 08:00 65 03/06/20 04:00 36.8 C 80 18 116/68 96 (1) Syncope Syncope type: unspecified Qualified Code(s): R55 - Syncope and collapse
--- NOTE | 2020-03-07 08:38 | Discharge Summary ---
Date of Service March 06, 2020 Admission HPI Per Admitting Provider History obtained from patient and records. Medical history significant for alcohol abuse. Patient got up from the commode after having a bowel movement yesterday to go into the bedroom. Subsequently felt lightheaded and had an unwitnessed syncopal event. Patient found by lying facedown after crash occurred. Unresponsive for a few minutes. No witnessed seizures. Patient denies chest pain, S OB no prior syncopal events in the past. Patient somewhat disoriented and had trouble remembering things after event. Patient brought to the ER for evaluation. Initial blood pressure at the ER 90s. Medical History as above No prior history of alcohol withdrawal seizures or confinement for alcohol withdrawal as per patient. Actinic keratosis on the face for which topical fluorouracil prescribed by manager medical device to start March,. Surgical History : Dental surgery Family History : Pancreatic cancer, colon cancer Personal/Social history : Non-smoker, alcohol abuse, retired [employer] employee Admission Exam Per Admitting Provider GENERAL: Comfortable, pleasant, no respiratory distress SKIN: Normal color, warm HEENT: Facial contusions, pink palpebral conjunctivae, no ptosis, swollen nasal dorsum, dry buccal mucosa NECK : Supple, no tenderness CHEST : CTA, no tenderness HEART : RRR, no obvious murmurs ABDOMEN: Some distention, nontender EXTREMITIES : No LE swelling/tenderness, no other conspicuous deformities noted NEUROLOGIC : Coherent, no facial asymmetry, no other gross focality Principal Diagnosis Syncope Nasal fracture Discharge Exam General- No acute distress Head- atraumatic Eyes- PERRL, EOMI, ENT- oropharynx clear Neck- supple, no JVD Lungs- clear to auscultation Heart- regular rhythm; no murmur Abdomen- normal bowel sounds, soft, nontender Extremities- no calf tenderness Neuro- alert, oriented x 3; PERRL, EOMI; no facial palsy; no dysarthria Skin- warm & dry Discharge Data Allergies Allergy/AdvReac Type Severity Reaction Status Date / Time No Known Allergies Allergy Verified 03/04/20 23:54 Consultations 03/05/20 00:55 ED Decision to Admit Stat 03/05/20 04:44 Consult Neurology Routine Ordered Studies 03/04/20 23:35 CT facial bones wo con Urgent CT head/brain wo con Urgent CT head/brain wo con CLINICAL HISTORY: 64 years-old Male with syncope, head injury. Acute head injury status post fall with loss of consciousness TECHNIQUE: Multiple axial CT images of the head were obtained without contrast. A dose lowering technique was utilized adhering to the principles of ALARA. COMPARISON: CT maxillofacial same day. FINDINGS: No acute intracranial hemorrhage, midline shift, intracranial mass, hydrocephalus, territorial ischemia or abnormal extra-axial collection. The calvarium is intact. Sigmoidal bowing of the nasal septum. Mild angulation of the left nasal bone. Soft tissue swelling surrounds the nasal bone. The paranasal sinuses, mastoid air cells, and middle ear cavities are clear. IMPRESSION: No acute intracranial abnormality. ACT 112: Negative or not required by law. The above report was generated using voice recognition software. It may contain grammatical, syntax or spelling errors. Electronically signed by: Marcus Milton M.D. 03/05/2020 8:25 AM Dictated: 03/05/20822 Transcribed: 03/05/[address] WITHOUT CONTRAST CLINICAL HISTORY: syncope face injury COMPARISON STUDY: None. TECHNIQUE: A maxillofacial CT was performed without IV contrast. Coronal and sagittal reformats were viewed. Automated exposure control was utilized for the study. A dose lowering technique was utilized adhering to the principles of ALARA. FINDINGS: Globes are intact with no retrobulbar hematoma. Nasal soft tissue swelling is noted. There is an acute minimally depressed left nasal bone fracture. No additional acute facial bone fractures are noted. Alignment of the temporomandibular joints is anatomic. There is no skull base fracture. No fracture is identified within visualized portions of the upper cervical spine. Left maxillary sinus mucous retention cyst is noted. IMPRESSION: Acute minimally depressed left basal bone fracture. This finding will be called/faxed to the ordering provider at time of dictation. ACT 112: Negative or not required by law. Electronically signed by: Pritesh Gregorio M.D. 03/05/2020 8:27 AM Dictated: 03/05/20821 Transcribed: 03/05/20821 XR chest 1V portable CLINICAL HISTORY: syncope COMPARISON STUDY: No previous studies for comparison. FINDINGS: Lung volumes are normal. Lungs are clear. There is no pneumothorax or pleural effusion. Cardiac size is normal. Mediastinal contours are normal. There is no evidence for pulmonary edema. IMPRESSION: No acute cardiopulmonary findings. ACT 112: Negative or not required by law. Electronically signed by: Pritesh Gregorio M.D. 03/05/2020 8:22 AM Dictated: 03/05/20820 Transcribed: 03/05/20820 Hospital Course (1) Syncope: Possible related to orthostasis when standing from sitting position or vasovagal from urination Low BP on admission CT head showed no acute intracranial abnormality CT face showed acute minimally depressed left basal bone fracture. Neuro on board EEG showed no evidence of seizure activity ECHO showed no LV wall motion abnormality with EF 55-60% No focal neuro deficit on exam Fall precaution Pt was advise to get up slowly when sitting or lying down to decrease the risk of fall due to orthostatic case discussed with neuro OK from Neuro standpoint to discharge home Nasal fracture CT facial showed showed acute minimally depressed left basal bone fracture. Case discussed with maxillofacial surgeon that recommended no surgical intervention Ok from maxillofacial standpoint to discharge home Ok to follow with maxillofacial surgery outpatient DVT prophylaxis on SCDs due to bleeding facial wounds Code status Full code Patient requests for his to be updated of plan of care in AM. Ms. Dionne Robins, contact #[phone]. Total Time Total Time Spent Total Time Spent (In Minutes): 35 minutes Total Time Includes: Examination of the Patient, Discharge Planning, Medication Reconciliation, Communication With Other Providers and Other Discharge Plan Discharge Items Patient Disposition: Home - Self-Care Reason For Visit: SYNCOPE Discharge Diagnosis: Syncope Nasal fracture Activity: Resume your previous activity Non-emergency contact: Primary Care Provider Call non-emergency contact if: you have any medication questions Follow-up/Referrals: Darrius Henson MD [Primary Care Provider] - 03/10/20 11:40 am (Date & Time 03/10/2020 11:40 AM Provider Darrius Henson MD Department [facility] ) Diet: Regular Addtl Attending Provider Instructions: Follow up with your primary care provider Dr. Henson on 03/10/[address] Kee to schedule follow appointment as needed for the nasal fracture. Address: [address] [place] [address] Phone:[phone] Fall precaution Pending Studies at Discharge: No Stand-Alone Forms: [employer], Smoking Cessation Medications and DC Order Prescriptions: No Action No Known Home Medications RF: 0 Discharge Orders: Discharge Order (Routine); Ordered 03/06/20 Ordered By: Gera Carlton Admission Data Admit Date/Time: 03/05/20 02:17 Attending Provider: Gera Carlton Admit Provider: Hans Chapa Primary Care Provider: Darrius Henson Other Providers: Hans Chapa ; Yahaira Garzon ; Tonio Avila ; Yahaira Sutherland ; Amandeep Mo Other Interventions: Discharge Summary Assessment (RN) Last Done: 03/06/20 15:41
[2020-03-07 23:17] LABS: Marijuana Quant, GCMS Urine 135 ng/mL (<5)
== END 2020-03-06 16:02 | disposition home or self-care (01) ==
LOC: ED 23:17 → 2N 23:17 → SUATTDRO 03-05 02:17 → 2N 03-05 04:01